=== PATIENT | female | born 1985 | race Caucasian/White ===

== ENCOUNTER 2017-08-15 16:08 | Emergency (ER) | payer OTHER ==
[2017-08-15 16:33] VITALS: TEMP 99; BMI 22.2
--- NOTE | 2017-08-15 16:39 | PDOC ---
History of Present Illness - General Chief Complaint: Vaginal Bleeding Stated Complaint: VAGINAL BLEEDING Time Seen by Provider: 08/15/17 16:23 History Source: Patient Exam Limitations: No Limitations - History of Present Illness Travel History: No Initial Comments: 08/15/17 16:38 32 yr female LMP 06/14/17 positive at home states she has low back and low abd pain with bleeding, spotting dark blood with clots. Pt denies fever or chills no urinary complaints. 5 month old infant . 08/15/17 16:58 Past History - Past Medical History Allergies/Adverse Reactions: Allergies Allergy/AdvReac Type Severity Reaction Status Date / Time No Known Allergies Allergy Verified 08/16/17 22:04 Home Medications: Ambulatory Orders Vit/Iron Fumarate/FA [ Tablet] 1 tab PO DAILY 08/15/17 Other medical history: denies - Reproductive History Is Patient Now?: Yes (lmp 06/14/17) (#): 2 Para: 1 Ectopic : No PID: No Therapeutic (s) & number: No Tubal Ligation: No Uterine Fibroids: No - Immunization History Tetanus Status: Less than 5 years - Suicide/Smoking/Psychosocial Hx Smoking History: Never smoked Have you smoked in the past 12 months: No Information on smoking cessation initiated: No Hx Alcohol Use: No Drug/Substance Use Hx: No Substance Use Type: None Review of Systems - Review of Systems Able to Perform ROS?: Yes Is the patient limited Persian proficient: No Constitutional: No: Symptoms Reported HEENTM: No: Symptoms Reported Respiratory: No: Symptoms reported Cardiac (ROS): No: Symptoms Reported ABD/GI: Yes: Symptoms Reported, See HPI. No: Other : No: Symptoms Reported Musculoskeletal: No: Symptoms Reported Integumentary: No: Symptoms Reported Neurological: No: Symptoms reported *Physical Exam - Vital Signs Last Vital Signs Temp Pulse Resp BP Pulse Ox 99 F 67 2 L 109/69 99 08/15/17 16:32 08/15/17 16:32 08/15/17 16:32 08/15/17 16:32 08/15/17 16:32 - Physical Exam Comments: 08/15/17 16:43 RR 14 no distress 08/15/17 18:51 General Appearance: Yes: Nourished, Appropriately Dressed HEENT: positive: EOMI, OBI Neck: positive: Supple. negative: Tender Respiratory/Chest: positive: Lungs Clear, Normal Breath Sounds Cardiovascular: positive: Regular Rhythm, Regular Rate Female Pelvic Exam: positive: normal external exam, normal adnexa, vaginal bleeding. negative: CMT, discharge, adnexal tenderness Gastrointestinal/Abdominal: positive: Normal Bowel Sounds, Soft. negative: Tender Musculoskeletal: positive: Normal Inspection Extremity: positive: Normal Capillary Refill, Normal Inspection, Normal Range of Motion Integumentary: positive: Normal Color, Dry, Warm Neurologic: positive: Fully Oriented, Alert, Normal Mood/Affect, Normal Response , Motor Strength 03/14 ED Treatment Course - LABORATORY CBC & Chemistry Diagram: 08/15/17 16:30 08/15/17 16:30 - RADIOLOGY Radiology Studies Ordered: Category Date Time Status TRANSVAGINAL US PREG [US] Stat Ultrasound 08/15/17 16:22 Ordered Medical Decision Making - Medical Decision Making 08/15/17 16:44 cc: vaginal bleeding in first trimeter with lower back and lower abd pain , neg right or left quadrant tenderness neg fever or chills will r/o ectopic r/o SAB labs, US vitals stable 08/15/17 18:04 pt awaiting for US *DC/Admit/Observation/Transfer Diagnosis at time of Disposition: Threatened - Discharge Dispostion Disposition: HOME Condition at time of disposition: Stable - Referrals Referrals: Edward Roe MD [Primary Care Provider] - - Patient Instructions Printed Discharge Instructions: DI for Threatened Additional Instructions: Increase fluids Pelvic rest Follow-up with your repairer As per our conversation with you and your who is translating for you, your to have your beta hCG levels redrawn/hormone levels in two days. You're also to have a repeat ultrasound done within the week. Beta HCG 46136/today Return back to the emergency department for severe/persistent or worsening symptoms or severe vaginal bleed.
[2017-08-15 16:43] LABS: BASOPHIL 0.4 % (0-2.0); EOSINOPHIL 0.7 % (0-4.5); MCH 29.8 pg (25.7-33.7); MCHC 34.2 g/dl (32.0-36.0); MEAN CELL VOLUME 87.1 fl (80-96); MEAN PLT VOLUME 9.9 fl (7.5-11.1); NEUTROPHILS 64.7 % (42.8-82.8); PLATELET COUNT 198 K/MM3 (134-434); RDW 12.8 % (11.6-15.6); WHITE BLOOD COUNT 6.7 K/mm3 (4.0-10.0)
[2017-08-15 17:18] LABS: INR 1.03 (0.82-1.09); PROTHROMBIN TIME (PATIENT) 11.3 SEC (9.98-11.88)
[2017-08-15 20:55] VITALS: BP 120/71; PULSE 94
--- NOTE | 2017-08-15 21:00 | PDOC ---
*Physical Exam - Vital Signs Last Vital Signs Temp Pulse Resp BP Pulse Ox 99 F 94 H 18 120/71 99 08/15/17 16:32 08/15/17 20:54 08/15/17 20:54 08/15/17 20:54 08/15/17 16:32 <Rita Winter - Last Filed: 08/15/17 21:00> - Vital Signs Last Vital Signs Temp Pulse Resp BP Pulse Ox 99 F 94 H 18 120/71 99 08/15/17 16:32 08/15/17 20:54 08/15/17 20:54 08/15/17 20:54 08/15/17 16:32 <Modesto Garcia - Last Filed: 08/17/17 08:01> ED Treatment Course - LABORATORY CBC & Chemistry Diagram: 08/15/17 16:30 08/15/17 16:30 - ADDITIONAL ORDERS Additional order review: Laboratory Results 08/15/17 08/15/17 08/15/17 16:30 16:30 16:30 PT with INR 11.30 INR 1.03 Sodium Cancelled Potassium Cancelled Chloride Cancelled Carbon Dioxide Cancelled Anion Gap Cancelled BUN Cancelled Creatinine Cancelled Creat Clearance w eGFR Cancelled Random Glucose Cancelled Calcium Cancelled Total Bilirubin Cancelled AST Cancelled ALT Cancelled Alkaline Phosphatase Cancelled Total Protein Cancelled Albumin Cancelled Beta HCG, Quant 06179.9 Blood Type A POSITIVE Antibody Screen Negative 08/15/17 16:30 RBC 4.49 MCV 87.1 MCHC 34.2 RDW 12.8 MPV 9.9 Neutrophils % 64.7 Lymphocytes % 28.4 Monocytes % 5.8 Eosinophils % 0.7 Basophils % 0.4 <Rita Winter - Last Filed: 08/15/17 21:00> - LABORATORY CBC & Chemistry Diagram: 08/15/17 16:30 08/15/17 16:30 - ADDITIONAL ORDERS Additional order review: 08/15/17 16:30 RBC 4.49 MCV 87.1 MCHC 34.2 RDW 12.8 MPV 9.9 Neutrophils % 64.7 Lymphocytes % 28.4 Monocytes % 5.8 Eosinophils % 0.7 Basophils % 0.4 <Modesto Garcia - Last Filed: 08/17/17 08:01> Progress Note - Progress Note Progress Note: Transvaginal ultrasound: Single intrauterine gestation is noted at approximately 5 weeks and 6 days. No embryonic cardiac activity is seen questionable early viable versus embryonic demise. Correlate with beta hCG levels. Follow-up with sonography. 3 x 2 cm uterine leiomyoma. 1.7 cm left ovarian cyst. <Rita Winter - Last Filed: 08/15/17 21:00> Medical Decision Making - Medical Decision Making 08/17/17 08:01 The patient was seen and evaluated in conjunction with CHRISTEN Winter under my direct supervision, ancillary studies were reviewed. case was discussed with and I agree with the plan as outlined by CHRISTEN Winter. <Modesto Garcia - Last Filed: 08/17/17 08:01> *DC/Admit/Observation/Transfer - Discharge Dispostion Admit: No <Rita Winter - Last Filed: 08/15/17 21:00> <Modesto Garcia - Last Filed: 08/17/17 08:01> Diagnosis at time of Disposition: Threatened - Discharge Dispostion Disposition: HOME Condition at time of disposition: Stable - Referrals Referrals: Edward Roe MD [Primary Care Provider] - - Patient Instructions Printed Discharge Instructions: DI for Threatened Additional Instructions: Increase fluids Pelvic rest Follow-up with your activities assistant As per our conversation with you and your who is translating for you, your to have your beta hCG levels redrawn/hormone levels in two days. You're also to have a repeat ultrasound done within the week. Beta HCG 89186/today Return back to the emergency department for severe/persistent or worsening symptoms or severe vaginal bleed.
== END 2017-08-15 21:09 | disposition home or self-care (01) ==
LOC: JER 16:08
DX: O20.0 Threatened abortion (principal); Z3A.01 Less than 8 weeks gestation of pregnancy
CPT/HCPCS: 36415; 76817-TC; 84702; 85025; 85610; 86850; 86900; 86901; 99282-25

== ENCOUNTER 2017-08-16 21:54 | Emergency (ER) | payer OTHER ==
[2017-08-16 22:07] VITALS: BP 104/61; PULSE 72; TEMP 98.4; BMI 20.7
--- NOTE | 2017-08-16 22:18 | PDOC ---
History of Present Illness - General Chief Complaint: Vaginal Bleeding Stated Complaint: VAGINAL BLEEDING Time Seen by Provider: 08/16/17 22:15 History Source: Patient - History of Present Illness Travel History: No Initial Comments: 08/17/17 01:25 32-year-old female presents to the emergency department with her complaining of vaginal bleed times one hour prior to her arrival to the emergency department. Patient states she was seen in the emergency department yesterday and was informed it was either early versus threatened AB. Patient denies any headache, dizziness, lightheadedness, chest pain, shortness of breath, abdominal pains, flank pains, urinary symptoms. Patient states she passed a large clot earlier. Timing/Duration: reports: intermittent Past History - Past Medical History Allergies/Adverse Reactions: Allergies Allergy/AdvReac Type Severity Reaction Status Date / Time No Known Allergies Allergy Verified 08/16/17 22:04 Home Medications: Ambulatory Orders Vit/Iron Fumarate/FA [ Tablet] 1 tab PO DAILY 08/15/17 Other medical history: Pt denies - Reproductive History (#): 2 Para: 1 Cervical CA: No Dysfunctional Uterine Bleeding: No Ectopic : No Endometrial CA: No PID: No Polycystic Ovaries: No Therapeutic (s) & number: No Tubal Ligation: No Spontaneous : 0 Uterine Fibroids: No - Suicide/Smoking/Psychosocial Hx Smoking History: Never smoked Have you smoked in the past 12 months: No Information on smoking cessation initiated: No Hx Alcohol Use: No Drug/Substance Use Hx: No Substance Use Type: None Review of Systems - Review of Systems Able to Perform ROS?: Yes Comments:: 08/17/17 01:24 CONSTITUTIONAL: Absent: fever, chills, diaphoresis, generalized weakness, malaise, loss of appetite HEENT: Absent: rhinorrhea, nasal congestion, throat pain, throat swelling, difficulty swallowing, mouth swelling, ear pain, eye pain, visual Changes CARDIOVASCULAR: Absent: chest pain, loss of consciousness, palpitations, irregular heart rate, peripheral edema RESPIRATORY: Absent: cough, shortness of breath, dyspnea with exertion, orthopnea, wheezing, stridor, hemoptysis GASTROINTESTINAL: Absent: abdominal pain, abdominal distension, nausea, vomiting, diarrhea, constipation, melena, hematochezia GENITOURINARY: Absent: dysuria, frequency, urgency, hesitancy, hematuria, flank pain, genital pain MUSCULOSKELETAL: Absent: myalgia, arthralgia, joint swelling SKIN: Absent: rash, itching, pallor HEMATOLOGIC/IMMUNOLOGIC: Absent: easy bleeding, easy bruising, lymphadenopathy, frequent infections ENDOCRINE: Absent: unexplained weight gain, unexplained weight loss, heat intolerance, cold intolerance NEUROLOGIC: Absent: headache, focal weakness or paresthesias, dizziness, unsteady gait, seizure, mental status changes, bladder or bowel incontinence PSYCHIATRIC: Absent: anxiety, depression, suicidal or homicidal ideation, hallucinations. Is the patient limited Tajik proficient: No *Physical Exam - Vital Signs Last Vital Signs Temp Pulse Resp BP Pulse Ox 98.4 F 72 18 104/61 99 08/16/17 22:04 08/16/17 22:04 08/16/17 22:04 08/16/17 22:04 08/16/17 22:04 - Physical Exam Comments: 08/17/17 01:24 GENERAL: Well developed, well nourished. Awake and alert. No acute distress. HEENT: Normocephalic, atraumatic. PERRLA, EOMI. No conjunctival pallor. Sclera are non- icteric. Moist mucous membranes. Oropharynx is clear. NECK: Supple. Full ROM. No JVD. Carotid pulses 2+ and symmetric, without bruits. No thyromegaly. No lymphadenopathy. CARDIOVASCULAR: Regular rate and rhythm. No murmurs, rubs, or gallops. Distal pulses are 2+ and symmetric. PULMONARY: No evidence of respiratory distress. Lungs clear to auscultation bilaterally. No wheezing, rales or rhonchi. ABDOMINAL: Soft. Non-tender. Non-distended. No rebound or guarding. No organomegaly. Normoactive bowel sounds. MUSCULOSKELETAL Normal range of motion at all joints. No bony deformities or tenderness. No CVA tenderness. EXTREMITIES: No cyanosis. No clubbing. No edema. No calf tenderness. SKIN: Warm and dry. Normal capillary refill. No rashes. No jaundice. NEUROLOGICAL: Alert, awake, appropriate. Cranial nerves 2-12 intact. No deficits to light touch and temperature in face, upper extremities and lower extremities. No motor deficits in the in face, upper extremities and lower extremities. Normoreflexic in the upper and lower extremities. Normal speech. Toes are down- going bilaterally. Gait is normal without ataxia. PSYCHIATRIC: Cooperative. Good eye contact. Appropriate mood and affect. Pelvic: External genitalia normal without lesions. Vaginal vault is clear without blood or discharge. Cervix is long and closed. No cervical motion tenderness. Uterus is nontender and normal in size. Adnexa are nontender and without masses. ED Treatment Course - LABORATORY CBC & Chemistry Diagram: 08/16/17 22:16 08/16/17 22:16 *DC/Admit/Observation/Transfer Diagnosis at time of Disposition: Vaginal bleeding, Miscarriage - Discharge Dispostion Disposition: HOME Condition at time of disposition: Stable Admit: No - Referrals Referrals: Edward Roe MD [Staff Physician] - - Patient Instructions Additional Instructions: Follow up with your Metal Fence Erector as scheduled for Friday/tom Return to the ER for severe/persistent/worsening symptoms 08/15/2017: 91500.9 08/16/2017: 8714.7
--- NOTE | 2017-08-16 22:23 | PDOC ---
*Physical Exam - Vital Signs Last Vital Signs Temp Pulse Resp BP Pulse Ox 98.4 F 72 18 104/61 99 08/16/17 22:04 08/16/17 22:04 08/16/17 22:04 08/16/17 22:04 08/16/17 22:04 - Physical Exam Comments: 08/16/17 22:23 The patient was examined by [CHRISTEN Winter] under my direct supervision. I personally evaluated the patient. I concur with the above findings and the plan of care. ED Treatment Course - LABORATORY CBC & Chemistry Diagram: 08/16/17 22:16 08/16/17 22:16 *DC/Admit/Observation/Transfer Diagnosis at time of Disposition: Vaginal bleeding, Miscarriage - Discharge Dispostion Disposition: HOME Condition at time of disposition: Stable - Referrals Referrals: Edward Roe MD [Staff Physician] - - Patient Instructions Additional Instructions: Follow up with your Senior Technologist as scheduled for Friday/tomorrow Return to the ER for severe/persistent/worsening symptoms 08/15/2017: 48666.9 08/16/2017: 8714.7
[2017-08-16 23:01] LABS: BASOPHIL 0.5 % (0-2.0); EOSINOPHIL 0.7 % (0-4.5); MCH 30.2 pg (25.7-33.7); MCHC 34.4 g/dl (32.0-36.0); MEAN CELL VOLUME 87.9 fl (80-96); NEUTROPHILS 68.6 % (42.8-82.8); PLATELET COUNT 204 K/MM3 (134-434); RDW 12.7 % (11.6-15.6); WHITE BLOOD COUNT 8.5 K/mm3 (4.0-10.0)
[2017-08-16 23:37] LABS: ALBUMIN 3.7 g/dl (3.4-5.0); ANION GAP 11 (8-16); BILIRUBIN,TOTAL 0.2 mg/dL (0.2-1.0); CO2 24 mmol/L (21-32); CREATININE 0.6 mg/dL (0.55-1.02); GLUCOSE,RANDOM 93 mg/dL (74-106); SGOT/AST 15 U/L (15-37); SGPT/ALT 26 U/L (12-78); TOT PROT 7.2 g/dl (6.4-8.2)
[2017-08-16 23:52] LABS: ALK PHOS 75 U/L (45-117)
== END 2017-08-17 01:25 | disposition home or self-care (01) ==
LOC: JER 21:54
DX: O03.9 Complete or unspecified spontaneous abortion without complication (principal); N93.9 Abnormal uterine and vaginal bleeding, unspecified
CPT/HCPCS: 36415; 76817-TC; 80053; 84702; 85025; 99281-25

== ENCOUNTER 2025-06-11 23:07 | Emergency (ER) | payer SELFPAY ==
[2025-06-11 23:27] VITALS: PULSE 92; RESP 18; BMI 25.7
[2025-06-12 00:53] VITALS: BP 123/76
[2025-06-12] MEDS ORDERED: ACETAMINOPHEN INJECTION 100 ML ONE (01:02)
[2025-06-12] MEDS ORDERED: FAMOTIDINE 20 MG/50 ML IVPB 20 MG/50 ML MG IVPB ONE (01:02)
[2025-06-12] MEDS: FAMOTIDINE 20 MG/50 ML IVPB 20 MG/50 ML MG IVPB ONE (01:08)
[2025-06-12] MEDS: ACETAMINOPHEN 1000 MG/100 ML BAG IVPB ONE (01:09)
[2025-06-12 01:33] LABS: MCHC 33.6 g/dl (32.2-35.5); MEAN CELL VOLUME 87.2 fl (79.4-94.8); MEAN PLT VOLUME 10.8 fl (9.4-12.3); RDW 11.9 % (12.1-16.8)
[2025-06-12 01:36] LABS: URINE APPEARANCE CLEAR; URINE BILIRUBIN NEGATIVE (NEGATIVE); URINE COLOR YELLOW; URINE GLUCOSE (UA) NEGATIVE (NEGATIVE); URINE KETONE NEGATIVE (NEGATIVE); URINE LEUK ESTERASE NEGATIVE (NEGATIVE); URINE NITRITE NEGATIVE (NEGATIVE); URINE PROTEIN NEGATIVE (NEGATIVE); URINE UROBILINOGEN 0.2 mg/dL (0.2-1.0)
[2025-06-12 01:49] LABS: CO2 27.0 mmol/L (21-32); GLUCOSE,RANDOM 103.0 mg/dL (74-106)
[2025-06-12 01:52] LABS: CREATININE 0.6 mg/dL (0.55-1.3); SGPT/ALT 41.0 U/L (13-61)
[2025-06-12 01:53] LABS: SGOT/AST 27.0 U/L (15-37)
[2025-06-12 01:54] LABS: TOT PROT 7.5 g/dl (6.4-8.2)
[2025-06-12 01:55] LABS: ALK PHOS 75.0 U/L (45-117)
[2025-06-12] MEDS ORDERED: SIMETHICONE 80 MG TAB.CHEW (FP) ONE (04:18)
[2025-06-12] MEDS: SIMETHICONE 80 MG TAB.CHEW (FP) PO ONE (04:28)
[2025-06-12 06:29] VITALS: TEMP 98
== END 2025-06-12 04:29 | disposition home or self-care (01) ==
LOC: JER 23:07
PROC: 3E033GC Introduction of Other Therapeutic Substance into Peripheral Vein, Percutaneous Approach (ICD-10-PCS; principal; 2025-06-12)
PROC: 3E033NZ Introduction of Analgesics, Hypnotics, Sedatives into Peripheral Vein, Percutaneous Approach (ICD-10-PCS; 2025-06-12)
DX: R10.84 Generalized abdominal pain (principal); R11.0 Nausea; R19.7 Diarrhea, unspecified; M79.10 Myalgia, unspecified site
CPT/HCPCS: 36415; 71046-TC-FY; 74177-TC; 80053; 81003; 83735; 84484; 84703; 85025; 87086; 93005; 93010; 99285-25; Q9967